=== PATIENT | female | born 1985 | race Two or more races ===

== ENCOUNTER 2024-07-02 00:15 | Inpatient (IN) | payer MEDICAID, SELFPAY ==
[2024-07-01 17:56] VITALS: BMI 22.1
--- NOTE | 2024-07-01 18:31 | PD.EDFMALE ---
ED Female Urogenital RME/HPI General Chief complaint: Urogenital-Female Stated complaint: PINK VAGINAL DRAINAGE 19 WEEKS PREG Time Seen by Provider: 07/01/24 18:26 Source: patient Arrival date/time: 07/01/24 17:55 Related Data Allergies Allergy/AdvReac Type Severity Reaction Status Date / Time No Known Allergies Allergy Verified 07/01/24 17:59 Discharge Plan Patient/Caregiver Discharge Instructions Print Language: North Korean
[2024-07-01 18:35] VITALS: BP 125/73; PULSE 89; RESP 16; TEMP 37; O2SAT 99
--- NOTE | 2024-07-01 18:42 | PD.EDRME ---
Rapid Medical Screening Exam RME Arrival date/time: 07/01/24 17:55 Chief Complaint: Urogenital-Female Time Seen by Provider: 07/01/24 18:26 Vital signs: Vital Signs Temperature 98.6 F 07/01/24 18:35 Pulse Rate 89 07/01/24 18:35 Respiratory Rate 16 07/01/24 18:35 Blood Pressure 125/73 07/01/24 18:35 Pulse Oximetry (%) 99 07/01/24 18:35 Oxygen Delivery Method Room Air 07/01/24 18:35 Pulse ox room air 99% Vital signs reviewed by provider: Yes RME Narrative: Patient complains of abdominal pain which was brief, urinated, seeing blood on the toilet tissue. Abdominal pain resolved. Patient last period was February 18 or . Denies any issues with this. Present
--- NOTE | 2024-07-01 18:44 | XR_ITS ---
Examination: Complete OB ultrasound greater than 14 weeks Date and time of exam: July 01, 2024 10:35 PM INDICATIONS: Heavy vaginal bleeding and pelvic cramping today Findings: Viable intrauterine single fetus with single amniotic sac presentation breech Cardiac motion 135 bpm Placenta anterior grade 0 Umbilical cord insertion seen Amniotic fluid 3.9 cm Cervix (, diameter 9.5 cm Ovaries obscured by bowel gas. Composite estimated gestational age based on BPD, head circumference, abdominal circumference, femur length is 19 weeks 5 days Estimated weight 306 g. Survey of intracranial anatomy, spinal anatomy, abdominal anatomy, four-chamber heart performed with no abnormalities identified. Impression: Viable intrauterine gestation breech presentation Cervix is open with fluid in the cervix, diameter of the cervix 9.5 x 9.2 cm.
--- NOTE | 2024-07-01 19:30 | EDNOTE_ITS ---
ED Female Urogenital RME/HPI General Chief complaint: Vaginal Bleeding Stated complaint: PINK VAGINAL DRAINAGE 19 WEEKS PREG Time Seen by Provider: 07/01/24 18:26 Arrival date/time: 07/01/24 17:55 RME / HPI RME / HPI Narrative: Patient complains of abdominal pain which was brief, urinated, seeing blood on the toilet tissue. Abdominal pain resolved. Patient last period was February 18 or . Denies any issues with this. Present ----- Dr. Szymanski?s Main ED Evaluation: 38yo female who is ~19 weeks gestation with no significant past medical history presents to the ED for a chief complaint of vaginal bleeding. Patient states she started noticing pink vaginal discharge today, but endorses it has progressed to dark red bleeding, so she came in for evaluation. Patient reports associated lower abdominal and back pain. She denies any N/V, fever, chills, cough, headache, dysuria or any other associated symptoms. She denies any previous abdominal surgeries. NKA. Related Data Allergies Allergy/AdvReac Type Severity Reaction Status Date / Time No Known Allergies Allergy Verified 07/01/24 17:59 Review of Systems Review of Systems Systems Reviewed: All systems reviewed, normal except as documented Past Medical History Past Medical History NEUROLOGIC: Negative Neurological Disorders CARDIAC: Negative Cardiac Disorders or Congestive Heart Failure RESPIRATORY: Negative Chronic Obstructive Pulmonary Disease (COPD) GASTROINTESTINAL: Negative Gastrointestinal Disorders GENITOURINARY: Negative Genitourinary Disorders or Renal Disease REPRODUCTIVE: Negative Endometriosis, Genital Herpes, Gonorrhea, Pelvic Inflammatory Disease, Previous Pregnancies, Syphilis or Uterine Prolapse MUSCULOSKELETAL: Negative Musculoskeletal Disorders ENDOCRINE: Negative Endocrine Disorders, Diabetes Mellitus Type 1 or Diabetes Mellitus Type 2 HEMATOLOGIC: Negative Blood Disorders, Anemia or Leukemia OTHER HISTORY: Positive Hospitalization (1996) and Blood Transfusions (1996 for facial reconsruction surgery); Negative Autoimmune Disease, Blood Transfusion Reaction, Anesthesia Reactions, MRSA, Clostridium Difficile or Cancer Family History FAMILY HISTORY: Positive Family Cardiac Disorders (Mother HTN); Negative Family Cancer, Family Surgery or Family Anesthesia Reaction Surgical History SURGICAL: Negative Section Social History SMOKING STATUS: Never smoker ED Exam Narrative Physical exam: GENERAL APPEARANCE: alert and oriented x 4, well-developed, well-nourished, no acute distress VITALS: All vitals were reviewed and the pulse ox is 99% on room air, which is normal according to my interpretation. HEENT: Normocephalic, atraumatic; pupils equal, round, reactive to light; EOMI; mucous membranes pink, moist; oropharynx clear NECK: Supple LUNGS: CTABL; no wheezes, no rales, no rhonchi HEART: Regular rate, regular rhythm; normal S1, S2; no murmurs ABDOMEN: non distended; gravid to the umbilicus, soft, no tenderness, no guarding, no rebound BACK: no CVA tenderness EXTREMITIES: atraumatic; no edema NEUROLOGIC: awake; alert and oriented x4; cranial nerves II-XII grossly intact; no focal sensory or motor deficits PSYCHIATRIC: somewhat anxious mood and affect SKIN: warm, dry, normal color; no rashes Course Quality Measures none Orders Category Date Time Status Aix Architect Q4H START 00 Care 07/01/24 19:30 Active Continuous Pulse Oximetry NOW Care 07/01/24 19:30 Completed IV [Insert IV] NOW Care 07/01/24 19:30 Active US OB >= 14 weeks Fetus Stat Exams 07/01/24 18:44 Completed Beta HCG,Quantitative Stat Lab 07/01/24 19:14 Completed CBC Stat Lab 07/01/24 19:14 Completed Comprehensive Metabolic Panel Stat Lab 07/01/24 19:14 Completed Lipase Stat Lab 07/01/24 19:14 Completed Rh Testing Only Stat Lab 07/01/24 19:14 Completed Urinalysis Stat Lab 07/01/24 20:30 Completed Acetaminophen Tab [Tylenol ES Tab] Med 07/01/24 19:30 Discontinued 1,000 mg PO X1 ONE cefTRIAXone/D5w 1gm IV premix [Rocephin/D5w 1gm IV Med 07/01/24 23:24 Discontinued premix] 1 gm in 50 ml IV X1 Vital Signs Vital signs: Vital Signs Temperature 98.6 F 07/01/24 18:35 Pulse Rate 89 07/01/24 18:35 Respiratory Rate 16 07/01/24 18:35 Blood Pressure 125/73 07/01/24 18:35 Pulse Oximetry (%) 99 07/01/24 18:35 Oxygen Delivery Method Room Air 07/01/24 18:35 Urogenital - Female MDM Narrative MDM Narrative:: Scribe Attestation: 07/01/24 - Sola Zheng am scribing for and in the presence of Dr. Szymanski. 2015: OB US was ordered at 1844 by the NEVIN. Pending at this time. 0004: Discussed case with Dr. Weiss from [facility] regarding consultation. Discussed patients ED course, exam findings, labs, and radiology results. Will accept the patient for admission up to the OB floor. Patient data External records reviewed:: [facility] previous records (Per chart review, patient has no previous ED visits to this facility.) Clinical information provided by:: patient Social determinants that could affect healthcare access:: none Patient has the following chronic illnesses:: none How is presenting disease/condition affected by chronic disease/condition?: no chronic disease Evaluation data The following diagnostics were reviewed and interpreted by me:: lab results and radiology exam(s) Lab and/or radiology exams considered but not ordered:: none Interpretation Summary: CBC is normal, CMP is normal, [place] [address], UA is positive for a UTI, according to my interpretation. ------- [facility] Report Signed Patient: EMILY HERNANDEZ. Record#: [id number] Birthdate: 1985 Age/Sex: 38 / F Location: [facility] Attending Dr: Ordering Physician: Harvinder Washington PA-C Date of Service: 07/01/24 Procedure(s): US OB >= 14 weeks Fetus Accession Number(s): [id number] cc: Dillon Poon MD; Harvinder Washington PA-C; Enid Flanagan~ Examination: Complete OB ultrasound greater than 14 weeks Date and time of exam: July 01, 2024 10:35 PM INDICATIONS: Heavy vaginal bleeding and pelvic cramping today Findings: Viable intrauterine single fetus with single amniotic sac presentation breech Cardiac motion 135 bpm Placenta anterior grade 0 Umbilical cord insertion seen Amniotic fluid 3.9 cm Cervix (, diameter 9.5 cm Ovaries obscured by bowel gas. Composite estimated gestational age based on BPD, head circumference, abdominal circumference, femur length is 19 weeks 5 days Estimated weight 306 g. Survey of intracranial anatomy, spinal anatomy, abdominal anatomy, four-chamber heart performed with no abnormalities identified. Impression: Viable intrauterine gestation breech presentation Cervix is open with fluid in the cervix, diameter of the cervix 9.5 x 9.2 cm. Dictated By: Dillon Poon MD Signed By: <Electronically signed by Dillon Poon MD in OV> 07/01/24 8256 Medications / Prescriptions Medications or Prescriptions considered but not ordered:: none Medication administrations:: Medication Administration History Discontinued Medications Acetaminophen (Acetaminophen 500 Mg Tablet) 1,000 mg PO X1 ONE Stop: 07/01/24 19:31 Last Admin: 07/01/24 20:01 Dose: 1,000 mg Documented By: BD Ceftriaxone Sodium/Dextrose (Rocephin/D5w 1gm Iv Premix) 1 gm in 50 mls @ 100 mls/hr IV X1 ONE Stop: 07/01/24 23:53 Last Infusion: 07/02/24 00:00 Dose: Infused Documented By: Admin: 07/01/24 23:29 Dose: 100 mls/hr Documented By: BD see above Consultations Consultation(s) initiated? (list below): Yes Diagnosis Urogenital Female Differential Diagnosis: other ( demise, placental abruption, miscarriage) Most likely diagnosis given after review of the tests above:: inevitable Admission Indicated Admission indicated?: indicated Admission Request Was there a request for admission?: Yes Admission Attestation Admission request attestation: Discussed case with [] from Hospitalist service regarding admission. Discussed patients ED course, exam findings, labs, and radiology results. The Hospitalist [agrees,declines] to accept the patient for admission. Disposition Plan Disposition Plan: Admit Discharge Plan Plan Patient Disposition: Admit Acute Care w/in Hospital Discharge Disposition comment: Admitted to Dr. Weiss Prescriptions/Referrals Referrals: Enid Flanagan FNP [Primary Care Provider] - In 1 week Problem List Clinical Impression: Inevitable Patient/Caregiver Discharge Instructions Print Language: Kuwaiti Stand Alone Forms: Janis Award Info., Patient Portal Info Letter
[2024-07-01 19:37] VITALS: BP 140/76; PULSE 95; RESP 18; TEMP 37.1; O2SAT 100
[2024-07-01 19:37] LABS: Basophils % (Auto) 0 % (0-2.5); Eosinophils # (Auto) 0.1 Thou/mm3 (0.0-0.5); Eosinophils % (Auto) 1 % (0-10); Hematocrit 32.9 % (36.0-46.0); Hemoglobin 11.4 g/dL (12.0-16.0); Immature Granulocytes % (Auto) 0 % (0-0); Immature Granulocytes Auto 0.04 Thou/mm3 (0.00-0.00); Lymphocytes # (Auto) 1.4 Thou/mm3 (1.0-4.8); Lymphocytes % (Auto) 14 % (10-50); Mean Corpuscular HGB Conc 34.7 g/dl (31.0-37.0); Mean Corpuscular Hemoglobin 32.2 pg (25.0-35.0); Mean Corpuscular Volume 93 fL (80-100); Monocytes # (Auto) 0.7 Thou/mm3 (0.0-0.8); Monocytes % (Auto) 7 % (0-12); Neutrophils # (Auto) 7.6 Thou/mm3 (1.8-7.7); Neutrophils % (Auto) 77 % (37-80); Nucleated Red Blood Cell % 0 /100 WBC (0); Platelet Count 260 Thou/mm3 (140-440); RDW Standard Deviation 49.8 fL (36.4-46.3); Red Blood Count 3.54 Miln/mm3 (4.00-5.20); White Blood Count 9.9 Thou/mm3 (3.6-11.0)
[2024-07-01 19:44] VITALS: PULSE 96
[2024-07-01] MEDS: ACETAMINOPHEN 500 MG TABLET 1000 MG PO (20:01)
[2024-07-01 20:15] LABS: Alanine Aminotransferase 12 U/L (10-49); Albumin, Serum 4.5 gm/dL (3.5-5.0); Albumin/Globulin Ratio 1.7 (1.2-2.2); Alkaline Phosphatase 65 U/L (46-116); Anion Gap 8 (7-16); Aspartate Amino Transferase 18 U/L (0-34); BUN/Creatinine Ratio 13 Ratio (12-20); Bilirubin,Total 0.2 mg/dL (0.3-1.2); Blood Urea Nitrogen 8 mg/dL (9-23); Carbon Dioxide 22.2 mMol/L (20.0-31.0); Chloride 105 mMol/L (98-107); Creatinine (Component) 0.6 mg/dL (0.6-1.3); Estimated Creatinine Clearance 106.2 mL/min (>60); Globulin 2.6 gm/dL (2.3-3.5); Glucose 91 mg/dL (74-106); Lipase 40 U/L (12-53); Osmolality,Calculated 268 (275-295); Potassium 3.6 mMol/L (3.4-5.1); Sodium 135 mMol/L (136-145); Total Protein 7.1 gm/dL (5.7-8.2); eGFR > 60 See Note
[2024-07-01 20:27] LABS: Beta HCG,Quantitative 32786 mIU/mL (<5.0)
[2024-07-01 20:45] LABS: Collection Type, Urine Clean Catch
[2024-07-01 21:00] VITALS: BP 115/64; PULSE 83; RESP 18; TEMP 36.9; O2SAT 100
[2024-07-01 21:22] LABS: Bacteria,Urine Rare; Bilirubin,Urine Negative (Negative); Blood,Urine 3+ (Negative); Clarity,Urine Clear (Clear/Hazy); Color,Urine Colorless (Lt Yel-Yel); Glucose, Urine Negative (Negative); Ketones,Urine Negative (Negative); Leukocyte Esterase,Urine Positive (Negative); Nitrite,Urine Negative (Negative); PH,Urine 6.5 (5.0-7.0); Protein,Urine Trace (Neg - Trace); RBC,Urine 59 /hpf (0-3); Specific Gravity,Urine 1.008 (1.001-1.035); Squamous Epithelial Cell,Urine 4 /hpf (0-5); Urobilinogen,Urine Negative mg/dL (0.0-1.0); WBC,Urine 31 /hpf (0-5)
[2024-07-01 23:00] VITALS: BP 110/72; PULSE 91; RESP 16; TEMP 36.9; O2SAT 98
[2024-07-01] MEDS: cefTRIAXone/D5w 1gm IV premix 1 GM/50 ML BAG IV (23:29)
[2024-07-02] VITALS (99 sets, daily range): BP systolic 89–133; BP diastolic 48–72; PULSE 68–111; RESP 17–99; TEMP 2.7–37.1; O2SAT 85–100; BMI 21.9
[2024-07-02] MEDS: RINGERS LACTATED 1000 ML 1,000 ML 100 ML IV ×2 (00:20→01:43)
[2024-07-02] MEDS: fentaNYL CIT INJ 50 mCg/ML AMP 2ML 100 MCG IV (00:50)
--- NOTE | 2024-07-02 01:11 | PD.LDHP ---
Documentation for date of: 07/02/24 OB Labor/Induct. HPI History of Present Illness : 2 Para: 1 Term pregnancies: 1 pregnancies: 0 Living children: 1 History of Abortions: Spontaneous and Elective: 0 History of Vaginal deliveries: 1 History of sections: No Date of last menstrual period: 02/20/24 ARCELIA: 11/22/24 Gestational Age (weeks): 19 Gestational age based on last menstrual period: 19 History of present illness: Patient presented to ER for vaginal bleeding. She noticed this afternoon having some pink spotting that progressed to bleeding that required a pad. While in the ER, she began to have painful abdominal cramping (at approximately 2300). No LOF. No fevers/chills. In the ER, obstetric ultrasound was done which showed cervix dilated 9cm, +FCA, MAHNAZ 3cm, breech presentation. I was called by Dr. Szymanski regarding the ultrasound findings and I asked him to send her right up to L&D. History of Present Dating criteria: LMP confirmed by 1st trimester US (per patient first visit at approx 11 weeks and ultrasound consistent with lmp dates) Narrative: Hx of uncomplicated term 04/2023, had elective iol at 39wk This patient has had care with Dr. Mondragon. No records (to include ob labs) available at time of encounter to review. Review of Systems Review of Systems Narrative Review of Systems: Review of Systems Systems Reviewed: All systems reviewed, normal except as documented Constitutional Constitutional: Denies body ache(s), Denies chills, Denies fever(s) and Denies headache(s) ENT Ears, Nose, Mouth, and Throat: Denies headache(s) and Denies vertigo Cardiovascular Cardiovascular: Denies chest pain, Denies palpitations, Denies dyspnea and Denies syncope Respiratory Respiratory: Denies cough, Denies dyspnea Gastrointestinal Gastrointestinal: Denies nausea and Denies vomiting Neurologic Neurologic: Denies convulsions, Denies headache(s), Denies other visual disturbances, Denies syncope and Denies vertigo Past Medical History Family History OTHER FAMILY HX: Mother- HTN Surgical History SURGICAL: Negative Section OTHER SURGICAL HX: 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 Social History SOCIAL: , no ETOH/tobacco/illicit drug use Past Medical History Comments PMH COMMENT: Fronto-nasal dysplasia Hx of infertility Meds Home Medications and Allergies Allergies Allergy/AdvReac Type Severity Reaction Status Date / Time No Known Allergies Allergy Verified 07/01/24 17:59 OB Exam Physical Exam Vital signs: Temp Pulse Resp BP Pulse Ox O2 Del Method 98.4 F 96 16 121/59 L 98 Room Air 07/01/24 23:00 07/02/24 00:50 07/01/24 23:00 07/02/24 00:50 07/02/24 01:09 07/01/24 23:00 Narrative: General: well developed, well nourished, no acute distress, conversant Cardiac: normal heart rate Lungs: breathing without distress Abdomen: soft, gravid, non-tender, no rebound or guarding Extremities: no edema BLE Detailed Labor and Delivery Exam Dilation (cm): 10 Effacement (%): 100 station: -2 Presentation: [place] Membranes: intact Baseline heart rate: 135 OB Results Labs 07/01/24 19:14 07/01/24 19:14 Labs: Short CBC 07/01/24 Range/Units 19:14 WBC 9.9 (3.6-11.0) Thou/mm3 Hgb 11.4 L (12.0-16.0) g/dL Hct 32.9 L (36.0-46.0) % Plt Count 260 (140-440) Thou/mm3 BMP 07/01/24 19:14 Sodium 135 L Potassium 3.6 Chloride 105 Carbon Dioxide 22.2 BUN 8 L Creatinine 0.6 Glucose 91 Calcium 9.0 Liver Function 07/01/24 Range/Units 19:14 Total Bilirubin 0.2 L (0.3-1.2) mg/dL AST 18 (0-34) U/L ALT 12 (10-49) U/L Alkaline Phosphatase 65 (46-116) U/L Albumin 4.5 (3.5-5.0) gm/dL Urine 07/01/24 Range/Units 20:30 Urine Color Colorless A (Lt Yel-Yel) Urine Clarity Clear (Clear/Hazy) Urine pH 6.5 (5.0-7.0) Ur Specific [place] 1.008 (1.001-1.035) Urine Protein Trace (Neg - Trace) Urine Glucose (UA) Negative (Negative) Impressions Impression: Examination: Complete OB ultrasound greater than 14 weeks Date and time of exam: July 01, 2024 10:35 PM INDICATIONS: Heavy vaginal bleeding and pelvic cramping today Findings: Viable intrauterine single fetus with single amniotic sac presentation breech Cardiac motion 135 bpm Placenta anterior grade 0 Umbilical cord insertion seen Amniotic fluid 3.9 cm Cervix (, diameter 9.5 cm Ovaries obscured by bowel gas. Composite estimated gestational age based on BPD, head circumference, abdominal circumference, femur length is 19 weeks 5 days Estimated weight 306 g. Survey of intracranial anatomy, spinal anatomy, abdominal anatomy, four-chamber heart performed with no abnormalities identified. Impression: Viable intrauterine gestation breech presentation Cervix is open with fluid in the cervix, diameter of the cervix 9.5 x 9.2 cm. OB Assessment & Plan Assessment and Plan (1) Cervical incompetence affecting management of in second trimester, antepartum: Status: Acute Assessment and plan: Flori is a 38yo with SIUP at 19wk presenting with cervical incompetence, completely dilated. Now having regular/painful contractions, SCE: C/C/-2 (amniotic sac is at the introitus), breech. Vitals wnl. +FCA. PMhx/ complicated by: -Short inter- interval (last delivery 05/06/23) -Care with Dr. Mondragon, no records available to review at time of admission Plan: -Admit to L&D -Establish IV, routine labs (type and cross 2u pRBCs) -Intermittent FHR auscultation -NPO -Expectant management -IV pain medication, candidate for epidural if desired -Anticipate -I discussed with patient and her that unfortunately delivery is imminent, there is no way to stop it to prolong the . I explained that the fetus is not viable at this gestational age and only comfort measures will be provided if born with a heartbeat since the lungs are not developed enough to sustain life. They voiced their understanding.
[2024-07-02 02:27] LABS: Syphilis Nonreactive (Nonreactive)
--- NOTE | 2024-07-02 02:43 | PC.NURSE ---
0242 trinh care done bleeding scant to light no blood clots. head of bed semi fowlers resting after epidural
[2024-07-02 04:11] LABS: Amphetamine/Metham Scrn,Ur OB Negative (Negative); Benzoylecgonine Screen, Ur OB Negative (Negative); Opiate Screen,Urine OB Negative (Negative); THC Screen,Urine OB Negative (Negative)
[2024-07-02] MEDS: METHYLERGONOVINE INJ 0.2 MG/ML VIAL IM (05:18)
[2024-07-02 05:58] LABS: Basophils % (Auto) 0 % (0-2.5); Eosinophils % (Auto) 0 % (0-10); Hematocrit 29.5 % (36.0-46.0); Immature Granulocytes % (Auto) 1 % (0-0); Immature Granulocytes Auto 0.08 Thou/mm3 (0.00-0.00); Lymphocytes # (Auto) 0.7 Thou/mm3 (1.0-4.8); Lymphocytes % (Auto) 4 % (10-50); Mean Corpuscular HGB Conc 33.9 g/dl (31.0-37.0); Mean Corpuscular Hemoglobin 32.2 pg (25.0-35.0); Mean Corpuscular Volume 95 fL (80-100); Monocytes # (Auto) 0.7 Thou/mm3 (0.0-0.8); Monocytes % (Auto) 4 % (0-12); Neutrophils # (Auto) 14.6 Thou/mm3 (1.8-7.7); Neutrophils % (Auto) 91 % (37-80); Nucleated Red Blood Cell % 0 /100 WBC (0); Platelet Count 215 Thou/mm3 (140-440); RDW Standard Deviation 50.5 fL (36.4-46.3); Red Blood Count 3.11 Miln/mm3 (4.00-5.20); White Blood Count 16.1 Thou/mm3 (3.6-11.0)
[2024-07-02 06:20] LABS: Fibrinogen 361 mg/dL (175-375); Partial Thromboplastin Time 25.6 Seconds (22.0-36.0); Prothrombin Time 10.9 Seconds (9.0-12.2)
[2024-07-02] MEDS: ACETAMINOPHEN 325 MG TABLET 650 MG PO (08:55)
[2024-07-02 11:15] LABS: Basophils % (Auto) 0 % (0-2.5); Eosinophils % (Auto) 0 % (0-10); Hematocrit 27.4 % (36.0-46.0); Hemoglobin 9.6 g/dL (12.0-16.0); Immature Granulocytes % (Auto) 0 % (0-0); Immature Granulocytes Auto 0.05 Thou/mm3 (0.00-0.00); Lymphocytes % (Auto) 8 % (10-50); Mean Corpuscular Hemoglobin 32.3 pg (25.0-35.0); Mean Corpuscular Volume 92 fL (80-100); Monocytes # (Auto) 0.4 Thou/mm3 (0.0-0.8); Monocytes % (Auto) 3 % (0-12); Neutrophils # (Auto) 11.5 Thou/mm3 (1.8-7.7); Neutrophils % (Auto) 89 % (37-80); Nucleated Red Blood Cell % 0 /100 WBC (0); Platelet Count 203 Thou/mm3 (140-440); RDW Standard Deviation 49.4 fL (36.4-46.3); Red Blood Count 2.97 Miln/mm3 (4.00-5.20)
--- NOTE | 2024-07-02 12:08 | PC.NURSE ---
[facility] here to take fetus
--- NOTE | 2024-07-02 13:28 | PD.LDDS ---
DS: Providers Provider Date of admission: 07/02/24 00:15 Primary care physician: ALEX Mendoza Admitting Provider: Jesus Szymanski MD Attending Provider on Admission: Sandra Weiss MD Consults: 07/02/24 08:36 Referral Lorri Urgent Comment: stillbirth/loss Attending Provider on DC: Sandra Weiss MD Discharging Provider: Sandra Weiss MD DS: Diagnosis Discharge Diagnosis (1) Cervical incompetence affecting management of in second trimester, antepartum: Status: Acute (2) Anemia, : Status: Acute Problem List Completed Was Problem List Reviewed/Reconciled?: Yes Summary/Hosp Course Brief History: Patient presented to ER for vaginal bleeding. She noticed this afternoon having some pink spotting that progressed to bleeding that required a pad. While in the ER, she began to have painful abdominal cramping (at approximately 2300). No LOF. No fevers/chills. In the ER, obstetric ultrasound was done which showed cervix dilated 9cm, +FCA, MAHNAZ 3cm, breech presentation. She was sent up to L&D immediately when findings were relayed. Patient had uncomplicated at 19 weeks after presenting with painless advanced cervical dilation, delivering at 0455 on 06/02/24. She has had an uncomplicated course, meeting all milestones and feels ready for discharge home. She is ambulating without lightheadedness, tolerating regular diet no n/v, spontaneously voiding without issue. She has no chest pain or shortness of breath. No fevers or chills. Minimal, appropriate discomfort. Vitals normal, benign exam. Hemodynamically stable with no evidence of infection. PP Hgb 9.6. Patient has seen waste elimination and social work. Peripartum Data Delivery Method: Normal Vaginal Delivery Episiotomy Description: None Status at Discharge Functional status at discharge: independent ambulation Overall status at discharge: patient is back to baseline Time Spent with Patient Time attestation: Total time spent providing and/or coordinating discharge services: Exam Vital Signs Temp Pulse Resp BP Pulse Ox O2 Del Method 98.3 F 76 17 113/64 100 Room Air 07/02/24 11:40 07/02/24 11:40 07/02/24 11:40 07/02/24 11:40 07/02/24 11:40 07/02/24 11:40 Narrative Exam General: well developed, well nourished, no acute distress, conversant Cardiac: normal heart rate Lungs: breathing without distress Abdomen: soft, post-gravid, non-tender, no rebound or guarding, Fundus firm at u-3cm. Extremities: no edema of BLE Discharge Plan Plan Patient Disposition: HOME (Self Care) Patient condition on transfer: Stable Prescriptions/Referrals Prescriptions/Med Rec: New ibuprofen 800 mg tablet 800 mg PO Q8H PRN (Reason: See Comments) 10 Days Qty: 20 0RF ferrous sulfate 325 mg (65 mg iron) tablet 325 mg PO QDAY Qty: 30 0RF docusate sodium [Colace] 100 mg capsule 100 mg PO BID Qty: 20 0RF Referrals: Enid Flanagan FNP [Primary Care Provider] - In 1 week Patient/Caregiver Discharge Instructions Discharge Activity: other Other Discharge Activity Instructions:: vaginal rest and no heavy lifting for 4 weeks Other Discharge Diet Instructions: regular Education Materials: After a Vaginal , Loss Grieving Print Language: Latvian Activity Restrictions/Additional Instructions: Follow up with Dr. Mondragon in 2 weeks for visit Recommend exploring [facility] to find a therapist for grief counseling Stand Alone Forms: Janis Award Info., Patient Portal Info Letter Discharge Order Discharge Orders: Discharge (Routine); Ordered 07/02/24 Ordered By: Sandra Weiss Planned Discharge Date 07/02/24
--- NOTE | 2024-07-02 13:30 | PD.LDDELS ---
Data (Jacob) Data Hx Section: No : 2 Term: 1 : 0 Livin Abortions: Spontaneous & Theraputic: 0 Delivery Data (Jacob) Labor Data Initiation of labor: Spontaneous Induction/Augmentation Agent: None ROM date: 07/02/24 ROM time: 04:55 Amniotic membrane rupture type: Spontaneous Amniotic fluid description: Bloody Delivery Data Onset of labor date: 07/01/24 Onset of labor time: 17:35 Complete dilation date: 07/02/24 Complete dilation time: 00:43 [place] delivery date: 07/02/24 delivery time: 04:55 Placenta delivery date: 07/02/24 Placenta delivery time: 04:56 Stage 1 total time: Labor - Stage 1 Duration 7 hours and 8 minutes Delivered by: Pedro Russell Delivery nurse: yes [place] nurse: roman samson Postal Sorting Officer at delivery: No Support person(s) at delivery: father of baby Other staff at delivery: roman jung rn and pedro samsonbelt turner Method Delivery method: Normal Vaginal Delivery Presentation: Breech Anesthesia Type Anesthesia Type: Epidural Placenta Placenta delivery description: Spontaneous Cord blood sent to lab: No Episiotomy Episiotomy description: None EBL Estimated blood loss (ml): 200 Additional Procedures Flori is a 38yo [id number] s/p uncomplicated pre-term, pre-viable at 19wk after presenting with painless advanced cervical dilation, delivering at 0455 on 07/02/2024. On presentation, SCE was C/C/-2, breech with bulging bag at the introitus. She received an epidural. She progressed WITHOUT augmentation to have sudden expulsion of fetus en caul with entire intact placenta. Amniotic sac was removed from around infant. Infant taken to warmer. Apgars 5/3. Cord was clamped and cut. Fundus firm at u-3cm and hemostasis noted. Inspection of perineum and vagina revealed no lacerations. 0.2mg IM methergine given. All counts correct x2. Mom was doing well when I left the room. was taken to NICU for further observation. Sandra Weiss MD Complications Complications: none Data (Jacob) [place] Data [place]'s gender: Ambiguous 1 minute: 5 5 minutes: 3
[2024-07-02 13:43] LABS: Alanine Aminotransferase 9 U/L (10-49); Albumin, Serum 3.7 gm/dL (3.5-5.0); Albumin/Globulin Ratio 1.5 (1.2-2.2); Alkaline Phosphatase 60 U/L (46-116); Anion Gap 15 (7-16); Aspartate Amino Transferase 18 U/L (0-34); BUN/Creatinine Ratio 10 Ratio (12-20); Bilirubin,Total 0.3 mg/dL (0.3-1.2); Blood Urea Nitrogen 6 mg/dL (9-23); Calcium 7.9 mg/dL (8.3-10.6); Calcium (Corrected) 8.1 mg/dL (8.5-10.1); Carbon Dioxide 17.5 mMol/L (20.0-31.0); Chloride 106 mMol/L (98-107); Creatinine (Component) 0.6 mg/dL (0.6-1.3); Estimated Creatinine Clearance 106.2 mL/min (>60); Globulin 2.4 gm/dL (2.3-3.5); Glucose 109 mg/dL (74-106); Osmolality,Calculated 274 (275-295); Potassium 4.1 mMol/L (3.4-5.1); Sodium 138 mMol/L (136-145); Total Protein 6.1 gm/dL (5.7-8.2); eGFR > 60 See Note
--- NOTE | 2024-07-02 15:20 | PC.NURSE ---
Patient cleared by Jay in social work lecturer
--- NOTE | 2024-07-02 17:03 | PC.SS ---
SIDEWALK INSPECTOR met with patient at bedside due to nursing referral indicating demise.? SIDEWALK INSPECTOR introduced self to the patient.? At bedside with patient was Stephen PAINTER.? Patient gave permission for FOB to be present during discussion.? SIDEWALK INSPECTOR offered condolences to the patient and FOB.? Patient acknowledged condolence.? Patient informed SIDEWALK INSPECTOR that she has processed unfortunate event with FOB.? Patient informed SIDEWALK INSPECTOR that she has released emotion by crying.? Patient informed SIDEWALK INSPECTOR that present time emotional state is stable.? FOB concurred that patient and he have discussed event and voiced no concerns for the patient?s current emotional status.? Patient relayed to the SIDEWALK INSPECTOR that she possesses a system of support to included FOB, mother and sister.? Patient also informed SIDEWALK INSPECTOR that she will not be left alone upon return home.? In addition, patient stated that she possesses a 14 month old baby at home.? Patient relayed plan to discharge home with support network in place.? SIDEWALK INSPECTOR provided patient with community resources to include Warm Line, Loss and Legacy of Loss information.? SIDEWALK INSPECTOR provided update to bedside nurse. ?
== END 2024-07-02 15:41 | disposition home or self-care (01) | DRG 560 ==
LOC: S4SX 00:58
PROVIDERS: Physician Assistant; Admitting Provider Emergency Medicine; PCP Student in an Organized Health Care Education/Training Program; Visit Provider Obstetrics & Gynecology
DX: O60.12X0 Preterm labor second trimester with preterm delivery second trimester, not applicable or unspecified (principal); Z3A.19 19 weeks gestation of pregnancy; O32.1XX0 Maternal care for breech presentation, not applicable or unspecified; O34.32 Maternal care for cervical incompetence, second trimester; Z37.0 Single live birth; O90.81 Anemia of the puerperium
CPT/HCPCS: 36415; 76805; 80053; 80307; 81001; 83690; 84702; 85025; 85384; 85610; 85730; 86780; 86850; 86900; 86901; 86923